=== PATIENT | female | born 1985 | race Caucasian/White ===

== ENCOUNTER 2019-04-06 09:16 | Emergency (ER) | payer OTHER ==
[2019-04-06 09:22] VITALS: BP 133/86; PULSE 111; TEMP 98; BMI 27.3
--- NOTE | 2019-04-06 09:51 | PDOC ---
History of Present Illness - General Chief Complaint: Vaginal Bleeding Stated Complaint: 13 WEEKS /SPOTTING Time Seen by Provider: 04/06/19 09:38 History Source: Patient Exam Limitations: No Limitations - History of Present Illness Initial Comments: 04/06/19 09:45 34YOF who is (about 13 weeks by US confirmed with OB provider) who p/w one hour of dark light vaginal spotting without clots or white material , also mild lower abdominal cramping. She denies any recent f/c/n/v/d/c, dysuria , vaginal discharge, headache, dizziness, lightheadedness, SOB, chest pain, back pain, or other symptoms. Never had this before, no h/o miscarriage or , LMP was mid-December. Past History - Past Medical History Allergies/Adverse Reactions: Allergies Allergy/AdvReac Type Severity Reaction Status Date / Time No Known Allergies Allergy Verified 04/06/19 09:22 Home Medications: Ambulatory Orders Cephalexin [Keflex] 500 mg PO BID #8 capsule 04/06/19 COPD: No - Psycho Social/Smoking Cessation Hx Smoking History: Never smoked Review of Systems - Review of Systems Able to Perform ROS?: Yes Comments:: GEN: no fever, chills, malaise, generalized weakness, or weight change HEENT: no ear pain, sore throat, vision change, or eye pain CV: no chest pain, palpitations, lightheadedness, syncope, or edema RESP: no cough, wheezing, or SOB GI: lower abdominal pain, no nausea, vomiting, diarrhea, constipation, or white/ black/bloody stool : vaginal bleeding, no dysuria, hematuria, incontinence, retention, or discharge MSK: no neck/back pain, muscle weakness/pain, or joint swelling/pain NEURO: no headache, seizure, vertigo, numbness, tingling, or focal weakness PSYCH: no substance use, no behavior change SKIN: no jaundice, no rash ROS otherwise negative except as noted in HPI *Physical Exam - Vital Signs Last Vital Signs Temp Pulse Resp BP Pulse Ox 98 F 111 H 18 133/86 99 04/06/19 09:19 04/06/19 09:19 04/06/19 09:19 04/06/19 09:19 04/06/19 09:19 - Physical Exam Comments: GENERAL: nontoxic and well-appearing, A/Ox4, no distress, answers questions appropriately, pleasant and Eritrean-speaking and accompanied by family HEENT: PERRLA, EOMI, moist mucous membranes NECK/BACK: no midline ttp, no spinal stepoff or deformity, no hematoma, full ROM , neck supple CARDIOVASCULAR: regular rate/rhythm, normal S1S2, no MGR, strong peripheral pulses, capillary refill <2 seconds, extremities wwp, no edema LUNGS/RESPIRATORY: no respiratory distress, CTAB GI/ABDOMEN: symmetric [id number], normoactive BS, soft, minimal suprapubic ttp , no midline pulsatile masses : no CVA tenderness, pelvic normal externally but small amount of dark red blood, speculum with small-moderate amount dark red blood without clots, small amount of physiologic discharge which is nonmalodorous, speculum with os closed and no tenderness EXTREMITIES: no muscle atrophy, no acute deformity SKIN: warm and dry, no pallor, no jaundice, no rash, no bruising, no skin breakdown, no cuts, no lesions NEUROLOGICAL: GCS 15, CN II-XII grossly intact, 5/5 strength proximally and distally, no facial droop ED Treatment Course - LABORATORY CBC & Chemistry Diagram: 04/06/19 09:40 04/06/19 09:40 - RADIOLOGY Radiology Studies Ordered: Category Date Time Status TRANSVAGINAL US PREG [US] Stat Ultrasound 04/06/19 09:38 Ordered Medical Decision Making - Medical Decision Making 34YOF p/w vaginal spotting and lower abdominal cramping at 13 weeks gestation. Initial Vital Signs Temp Pulse Resp BP Pulse Ox 98 F 111 H 18 133/86 99 04/06/19 09:19 04/06/19 09:19 04/06/19 09:19 04/06/19 09:19 04/06/19 09:19 Exam noted in Physical Examination Section. Laboratory Tests 04/06/19 04/06/19 04/06/19 09:40 09:40 09:40 WBC 7.6 RBC 4.87 Hgb 14.6 Hct 42.2 MCV 86.5 MCH 29.9 MCHC 34.6 RDW 14.3 Plt Count 320 MPV 8.3 Absolute Neuts (auto) 5.3 Neutrophils % 70.3 Lymphocytes % 21.8 Monocytes % 5.9 Eosinophils % 1.2 Basophils % 0.8 Nucleated RBC % 0 Sodium 136 Potassium 4.0 Chloride 105 Carbon Dioxide 23 Anion Gap 9 BUN 8.6 Creatinine 0.5 L Est GFR (CKD-EPI)AfAm 148.42 Est GFR (CKD-EPI)NonAf 128.06 Random Glucose 83 Calcium 9.1 Beta HCG, Quant 956937.1 Urine Color Urine Appearance Urine pH Ur Specific [place] Urine Protein Urine Glucose (UA) Urine Ketones Urine Blood Urine Nitrite Urine Bilirubin Urine Urobilinogen Ur Leukocyte Esterase Urine WBC (Auto) Urine RBC (Auto) Urine Casts (Auto) U Pathogenic Cast Auto U Epithel Cells (Auto) Urine Bacteria (Auto) Blood Type O POSITIVE Antibody Screen Negative 04/06/19 10:00 WBC RBC Hgb Hct MCV MCH MCHC RDW Plt Count MPV Absolute Neuts (auto) Neutrophils % Lymphocytes % Monocytes % Eosinophils % Basophils % Nucleated RBC % Sodium Potassium Chloride Carbon Dioxide Anion Gap BUN Creatinine Est GFR (CKD-EPI)AfAm Est GFR (CKD-EPI)NonAf Random Glucose Calcium Beta HCG, Quant Urine Color Red Urine Appearance Turbid Urine pH 6.0 Ur Specific [place] 1.024 Urine Protein 2+ H Urine Glucose (UA) Negative Urine Ketones Negative Urine Blood 3+ H Urine Nitrite Positive H Urine Bilirubin 2+ H Urine Urobilinogen 0.2 Ur Leukocyte Esterase 2+ H Urine WBC (Auto) 26 Urine RBC (Auto) 7722.0 Urine Casts (Auto) 220 U Pathogenic Cast Auto None seen U Epithel Cells (Auto) 29.7 Urine Bacteria (Auto) 3.2 Blood Type Antibody Screen Patient treated with Keflex for UTI (dose given here and Rx sent to pharmacy). US/ <14WKS US History Bleeding in early TECHNIQUE: Transabdominal Findings The uterus measures 11.4 x 9.5 x 11.0 cm.. Including a 2.5 cm posterior intramural myoma A single intrauterine gestation is identified , by ultrasound measurements 13 weeks 1 day. heart rate 142 BPM. No evidence of subchorionic hemorrhage The right ovary measures 3.0 x 1 0.7, 1.4 cm. The left ovary is not identified There are no adnexal masses. There is no free fluid in the pelvis. IMPRESSION Single intrauterine gestation of 13 weeks 1 day. heart rate 142 BPM. Recommend ultrasound anatomic level 2 survey at 21 weeks of gestation 04/06/19 11:32 The patient is Rh-positive and does not need Rhogam. She is instructed to take the Keflex at home and f/u with PCP and FLORIST SUPPLIES SALESPERSON this week. Return precautions are discussed and she will f/u as necessary. Discharge - Discharge Information Problems reviewed: Yes Clinical Impression/Diagnosis: Threatened UTI (urinary tract infection) Qualifiers: Urinary tract infection type: acute cystitis Hematuria presence: with hematuria Qualified Code(s): N30.01 - Acute cystitis with hematuria Condition: Stable Disposition: HOME - Admission No - Additional Discharge Information Prescriptions: Cephalexin [Keflex] 500 mg PO BID #8 capsule - Follow up/Referral - Patient Discharge Instructions Patient Printed Discharge Instructions: DI for Threatened , DI for Urinary Tract Infection (UTI) Additional Instructions: You were seen in the ER for vaginal bleeding in . You have a urinary tract infection, and we gave you a pill of antibiotic and sent the rest of the prescription to your pharmacy. Please pick up truck driver and take the whole course of antibiotics as instructed. Follow up with your FLORIST SUPPLIES SALESPERSON and primary doctors this week. We do not believe you are having a miscarriage at this time, but please make sure to come back to the ER for any new or worsening symptoms. - Post Discharge Activity
[2019-04-06 09:56] LABS: BASO % 0.8 % (0-2.0); EOS % 1.2 % (0-4.5); HEMATOCRIT 42.2 % (32.4-45.2); HEMOGLOBIN 14.6 GM/dL (10.7-15.3); LYMPH % 21.8 % (8-40); MCH 29.9 pg (25.7-33.7); MCHC 34.6 g/dl (32.0-36.0); MEAN CELL VOLUME 86.5 fl (80-96); MEAN PLT VOLUME 8.3 fl (7.5-11.1); MONO % 5.9 % (3.8-10.2); NEUT % 70.3 % (42.8-82.8); PLATELET COUNT 320 K/MM3 (134-434); RBC 4.87 M/mm3 (3.60-5.2); RDW 14.3 % (11.6-15.6); WHITE BLOOD COUNT 7.6 K/mm3 (4.0-10.0)
[2019-04-06 10:22] LABS: EPI CELLS 29.7 /HPF (0-5/HPF); HYALINE CASTS 220 /lpf (0-8); URINE APPEARANCE TURBID; URINE BILIRUBIN 2+ (NEGATIVE); URINE COLOR RED; URINE GLUCOSE (UA) NEGATIVE (NEGATIVE); URINE KETONE NEGATIVE (NEGATIVE); URINE LEUK ESTERASE 2+ (NEGATIVE); URINE NITRITE POSITIVE (NEGATIVE); URINE PROTEIN 2+ (NEGATIVE); URINE UROBILINOGEN 0.2 mg/dL (0.2-1.0); URINE WBC 26 /hpf (0-5)
[2019-04-06 10:39] LABS: BLOOD UREA NITROGEN 8.6 mg/dL (7-18); CALCIUM 9.1 mg/dL (8.5-10.1); CREATININE 0.5 mg/dL (0.55-1.3)
[2019-04-06 10:44] LABS: URINE BACTERIA 3.2 /hpf (NEGATIVE)
[2019-04-06] MEDS ORDERED: CEPHALEXIN MONOHYDRATE 500 MG CAPSULE (UD) PO ONE (11:32)
--- NOTE | 2019-04-06 11:36 | PDOC ---
Attending Attestation - Resident Resident Name: Rachel Sewell - HPI HPI: 04/06/19 11:36 Pt presents to the ED complaining of vaginal bleeding. 13 weeks by dates. - Physicial Exam PE: 04/06/19 11:38 Agree with resident exam. PAtient is alert and in no acute distress. Abdomen soft, non tender, non distended without guarding or rebound. + moderate blood in the vaginal vault on resident exam. - Medical Decision Making 04/06/19 11:40 Pt presents to the ED complaining of vaginal bleeding. 13 weeks by dates. Official US confirms IUP with normal FHR. + UTI on UA. Will treat with macrobid and discharge home with instructions to follow up with primary OB.
[2019-04-06] MEDS ORDERED: CEPHALEXIN MONOHYDRATE 500 MG CAPSULE (UD) ONE (12:08)
== END 2019-04-06 12:15 | disposition home or self-care (01) ==
LOC: JER 09:16
DX: O26.891 Other specified pregnancy related conditions, first trimester (principal); O20.0 Threatened abortion; O23.41 Unspecified infection of urinary tract in pregnancy, first trimester; N30.01 Acute cystitis with hematuria; Z3A.13 13 weeks gestation of pregnancy
CPT/HCPCS: 36415; 76801-TC; 80048; 81003; 84702; 85025; 86850; 86900; 86901; 87086; 99282-25

== ENCOUNTER 2019-04-15 21:28 | Emergency (ER) | payer OTHER ==
[2019-04-15 22:03] VITALS: BMI 28.3
[2019-04-15 23:42] LABS: EPI CELLS 1.8 /HPF (0-5/HPF); HYALINE CASTS 0 /lpf (0-8); PH,URINE 6.5 (5.0-8.0); URINE APPEARANCE CLEAR; URINE BACTERIA 20.5 /hpf (NEGATIVE); URINE BILIRUBIN NEGATIVE (NEGATIVE); URINE COLOR YELLOW; URINE GLUCOSE (UA) NEGATIVE (NEGATIVE); URINE KETONE NEGATIVE (NEGATIVE); URINE LEUK ESTERASE NEGATIVE (NEGATIVE); URINE NITRITE NEGATIVE (NEGATIVE); URINE PROTEIN NEGATIVE (NEGATIVE); URINE RBC 1 /hpf (0-4); URINE UROBILINOGEN 0.2 mg/dL (0.2-1.0); URINE WBC 1 /hpf (0-5)
[2019-04-16 00:09] VITALS: BP 101/64; PULSE 104; TEMP 98.2
--- NOTE | 2019-04-16 00:17 | PDOC ---
Documentation entered by Minal Brennan SCRIBE, acting as scribe for Linette Shelley MD. Linette Shelley MD: This documentation has been prepared by the Mika hardin Adrianna, SCRIBE, under my direction and personally reviewed by me in its entirety. I confirm that the documentation accurately reflects all work, treatment, procedures, and medical decision making performed by me. History of Present Illness - General Chief Complaint: Pain Stated Complaint: ABD PAIN/15WKS PREG. Time Seen by Provider: 04/15/19 22:48 - History of Present Illness Initial Comments: The patient is a 34 year old female, (about 15 weeks by US confirmed with OB provider), presenting to the ED for evaluation of abdominal cramping for 4 days. Patient comes of diffuse lower abdominal cramping since Sunday. She endorses associated thick, white discharge. Patient notes she saw her OB for this complaint, and was placed on one dose of Diflucan. She reports no change in her symptoms after taking the medication. She denies any vaginal bleeding at this time. Patient was seen in the ED 9 days ago for a similar complaint, and was found to have a UTI (given antibiotics). Allergies: NKA, NKDA Surgical History: None reported Social History: Denies EtOH, tobacco, or illicit drug use OBGYN: Dr. Munguia Past History - Past Medical History Allergies/Adverse Reactions: Allergies Allergy/AdvReac Type Severity Reaction Status Date / Time No Known Allergies Allergy Verified 04/16/19 00:14 COPD: No - Psycho Social/Smoking Cessation Hx Smoking History: Never smoked Have you smoked in the past 12 months: No Information on smoking cessation initiated: No Hx Alcohol Use: No Drug/Substance Use Hx: No Review of Systems - Review of Systems Comments:: GENERAL/CONSTITUTIONAL: +15 weeks . No fever or chills. No weakness. HEAD, EYES, EARS, NOSE AND THROAT: No change in vision. No ear pain or discharge. No sore throat. CARDIOVASCULAR: No chest pain or shortness of breath. RESPIRATORY: No cough, wheezing, or hemoptysis. GASTROINTESTINAL: No nausea, vomiting, diarrhea or constipation. GENITOURINARY: +Diffuse lower abdominal cramping. +White, thick discharge. No dysuria, frequency, or change in urination. MUSCULOSKELETAL: No joint or muscle swelling or pain. No neck or back pain. SKIN: No rash NEUROLOGIC: No headache, vertigo, loss of consciousness, or change in strength/ sensation. ENDOCRINE: No increased thirst. No abnormal weight change. HEMATOLOGIC/LYMPHATIC: No anemia, easy bleeding, or history of blood clots. ALLERGIC/IMMUNOLOGIC: No hives or skin allergy. *Physical Exam - Vital Signs Last Vital Signs Temp Pulse Resp BP Pulse Ox 97.7 F 98 H 17 125/85 100 04/15/19 22:01 04/15/19 22:01 04/15/19 22:01 04/15/19 22:01 04/15/19 22:01 - Physical Exam Comments: GENERAL: Awake, alert, and fully oriented, in no acute distress HEAD: No signs of trauma EYES: PERRLA, EOMI, sclera anicteric, conjunctiva clear ENT: Auricles normal inspection, hearing grossly normal, nares patent, oropharynx clear without exudates. Moist mucosa NECK: Normal ROM, supple, no lymphadenopathy, JVD, or masses LUNGS: Breath sounds equal, clear to auscultation bilaterally. No wheezes, and no crackles HEART: Regular rate and rhythm, normal S1 and S2, no murmurs, rubs or gallops ABDOMEN: +Band-like lower abdominal ttp. Soft, normoactive bowel sounds. No guarding, no rebound. No masses EXTREMITIES: Normal range of motion, no edema. No clubbing or cyanosis. No cords, erythema, or tenderness NEUROLOGICAL: Cranial nerves II through XII grossly intact. Normal speech, normal gait SKIN: Warm, Dry, normal turgor, no rashes or lesions noted. ED Treatment Course - ADDITIONAL ORDERS Additional order review: Laboratory Results 04/15/19 23:28 Urine Color Yellow Urine Appearance Clear Urine pH 6.5 Ur Specific [place] 1.005 L Urine Protein Negative Urine Glucose (UA) Negative Urine Ketones Negative Urine Blood Trace Urine Nitrite Negative Urine Bilirubin Negative Urine Urobilinogen 0.2 Ur Leukocyte Esterase Negative Urine WBC (Auto) 1 Urine RBC (Auto) 1 Urine Casts (Auto) 0 U Epithel Cells (Auto) 1.8 Urine Bacteria (Auto) 20.5 - RADIOLOGY Radiology Studies Ordered: Category Date Time Status LIMITED US [US] Stat Ultrasound 04/15/19 23:13 Taken Medical Decision Making - Medical Decision Making 04/16/19 00:12 this 34 yo female PMH p/w band like discomfort in across her pelvis ,she denies any bleeding she was seen 2 weeks ago and treated for a UTI and had a pelvic US that showed a SL IUP of 13 weeks 04/16/19 00:15 pt has no nausea ,no vomiting, no vaginal bleeding or cramping tonight UA is negative 04/16/19 02:19 single live intrauterine fetus estimated age is 15 weeks 0 days heart rate of 170. Amniotic fluid within normal limits. Cervical length 3 cm discharge home Discharge - Discharge Information Problems reviewed: Yes Clinical Impression/Diagnosis: Qualifiers: Weeks of gestation: 15 weeks Qualified Code(s): Z3A.15 - 15 weeks gestation of Condition: Stable Disposition: HOME - Follow up/Referral Referrals: Camila Munguia MD [Primary Care Provider] - - Patient Discharge Instructions Patient Printed Discharge Instructions: DI for Pelvic Pain, DI for - - Discomforts and Remedies Additional Instructions: please followup with your open hearth laborer - Post Discharge Activity
== END 2019-04-16 02:29 | disposition home or self-care (01) ==
LOC: JER 21:28
DX: O26.892 Other specified pregnancy related conditions, second trimester (principal); R10.30 Lower abdominal pain, unspecified; N89.8 Other specified noninflammatory disorders of vagina; Z3A.15 15 weeks gestation of pregnancy
CPT/HCPCS: 76815-TC; 81003; 99282-25

== ENCOUNTER 2019-07-02 07:23 | Emergency (ER) | payer OTHER ==
[2019-07-02 07:48] VITALS: BMI 27.1
--- NOTE | 2019-07-02 07:56 | PDOC ---
History of Present Illness - General Chief Complaint: Urinary Problem Stated Complaint: BURNING W/URINATION Time Seen by Provider: 07/02/19 07:42 History Source: Patient, Spouse Exam Limitations: No Limitations Past History - Past Medical History Allergies/Adverse Reactions: Allergies Allergy/AdvReac Type Severity Reaction Status Date / Time No Known Allergies Allergy Verified 07/02/19 07:36 Home Medications: Ambulatory Orders Cephalexin [Keflex] 500 mg PO BID #13 capsule 07/02/19 COPD: No - Psycho Social/Smoking Cessation Hx Smoking History: Never smoked Have you smoked in the past 12 months: No Information on smoking cessation initiated: No Hx Alcohol Use: No Drug/Substance Use Hx: No *Physical Exam - Vital Signs Last Vital Signs Temp Pulse Resp BP Pulse Ox 97.6 F 95 H 17 124/66 100 07/02/19 07:34 07/02/19 07:34 07/02/19 07:34 07/02/19 07:34 07/02/19 07:34 - Physical Exam General Appearance: No: Apparent Distress Respiratory/Chest: positive: Lungs Clear, Normal Breath Sounds. negative: Respiratory Distress Cardiovascular: positive: Regular Rhythm, Regular Rate, S1, S2. negative: Murmur Gastrointestinal/Abdominal: positive: Soft, Other (gravid abdomen) Musculoskeletal: negative: CVA Tenderness Neurologic: positive: Alert Medical Decision Making - Medical Decision Making 34 y/o F currently 26 weeks presents with dysuria from yesterday. Denies fever, sob, cp, abd pain, vomiting, hematuria, vaginal bleeding. Follows with OB, Dr. Camila Munguia, regarding her R/O UTI Plan: UA, UCx Will send to OB afterward for FHR 07/02/19 07:54 UA shows +UTI Given Keflex Will send to OB for FHR 07/02/19 08:40 Discharge - Discharge Information Problems reviewed: Yes Clinical Impression/Diagnosis: UTI (urinary tract infection) Qualifiers: Urinary tract infection type: acute cystitis Hematuria presence: without hematuria Qualified Code(s): N30.00 - Acute cystitis without hematuria Condition: Stable Disposition: HOME - Admission No - Additional Discharge Information Prescriptions: Cephalexin [Keflex] 500 mg PO BID #13 capsule Prescription Drug Monitoring Program (I-STOP) results: I-STOP not reviewed - Follow up/Referral Referrals: Karsten Hardwick MD, MD [Primary Care Provider] - - Patient Discharge Instructions Patient Printed Discharge Instructions: DI for Urinary Tract Infection (UTI) Additional Instructions: Thank you for choosing [facility]. It was a pleasure taking care of you. Take antibiotics as prescribed for urine infection Drink at least 2L of water daily Continue follow-up with your AUTO INSPECTION SPECIALIST and regular doctor Return to the Emergency Department if your symptoms worsen or persist or have other concerning symptoms. - Post Discharge Activity
[2019-07-02 08:24] LABS: EPI CELLS 9.9 /HPF (0-5/HPF); HYALINE CASTS 16 /lpf (0-8); URINE APPEARANCE CLOUDY; URINE BACTERIA 247.6 /hpf (NEGATIVE); URINE BILIRUBIN NEGATIVE (NEGATIVE); URINE COLOR DK YELLOW; URINE GLUCOSE (UA) NEGATIVE (NEGATIVE); URINE KETONE NEGATIVE (NEGATIVE); URINE LEUK ESTERASE 2+ (NEGATIVE); URINE NITRITE NEGATIVE (NEGATIVE); URINE PROTEIN TRACE (NEGATIVE); URINE RBC 4 /hpf (0-4); URINE UROBILINOGEN 0.2 mg/dL (0.2-1.0); URINE WBC 63 /hpf (0-5)
[2019-07-02] MEDS ORDERED: CEPHALEXIN MONOHYDRATE 500 MG CAPSULE (UD) PO ONE (08:38)
[2019-07-02] MEDS ORDERED: CEPHALEXIN MONOHYDRATE 500 MG CAPSULE (UD) ONE (08:42)
[2019-07-02 09:31] VITALS: BP 123/79; PULSE 80; TEMP 98.2
--- NOTE | 2019-07-02 10:02 | CONSULT ---
Past Medical History, Laborist - Primary Care Physician PCP:: Chava De La Cruz - Admission Chief Complaint: urinary frequency, burnning History of Present Illness: 34 yo f g 2 p0101 25.4 weeks, c/o urinary frequency and burning , no hematuria, no fever or flank pain, no contraction ,no vaginal fluid Limitations to Obtaining History: Language Barrier - Past Medical History Renal/: UTI ...: 2 ...Para: 1 ...: 1 ...LMP: 01/04/19 ... Weeks Gestation by Dates: 25 ...EDC by Dates: 10/08/19 - Smoking History Smoking history: Never smoked Have you smoked in the past 12 months: No - Alcohol/Substance Use Hx Alcohol Use: No - Social History History of Recent Travel: No Review of Systems - Review of Systems Constitutional: reports: No Symptoms Eyes: reports: No Symptoms HENT: reports: No Symptoms Neck: reports: No Symptoms Cardiovascular: reports: No Symptoms Respiratory: reports: No Symptoms Gastrointestinal: reports: No Symptoms Genitourinary: reports: Burning, Frequency Neurological: reports: No Symptoms Endocrine: reports: No Symptoms Hematology/Lymphatic: reports: No Symptoms Physical Exam - Maternity Vital Signs: Vital Signs Temperature 98.2 F 07/02/19 09:17 Pulse Rate 80 07/02/19 09:17 Respiratory Rate 20 07/02/19 09:17 Blood Pressure 123/79 07/02/19 09:17 O2 Sat by Pulse Oximetry (%) 100 07/02/19 07:34 Constitutional: Yes: Well Nourished, No Distress, Calm Eyes: Yes: WNL, Conjunctiva Clear, EOM Intact HENT: Yes: WNL, Atraumatic, Normocephalic Neck: Yes: WNL, Supple, Trachea Midline Cardiovascular: Yes: WNL, Regular Rate and Rhythm Breast(s): Yes: WNL - Abdominal Exam/OB Fundal Height: 26 Number of Fetuses: Single Presentation: Breech Contractions: No Intensity: Unaware Category: I Decelerations: None - Vaginal Exam/OB Vaginal Bleediing: No (positve for thick white curdy discharge) Speculum Exam: Yes Dilatation (cm): 0 Effacement (%): 0 Amniotic Membrane Status: Intact Station: -4 - Physical Exam Musculoskeletal: Yes: WNL Extremities: Yes: WNL Edema: No Hemorrhage Risk Assessment - Risk Factors Medium Risk Factors: Yes: None High Risk Factors: Yes: None Risk Score: 1 Risk Level: Medium Risk Problem List - Problems (1) with 24 completed weeks gestation Code(s): Z3A.24 - 24 WEEKS GESTATION OF (2) UTI (urinary tract infection) Code(s): N39.0 - URINARY TRACT INFECTION, SITE NOT SPECIFIED Qualifiers: Urinary tract infection type: acute cystitis (3) Yeast vaginitis Code(s): B37.3 - CANDIDIASIS OF VULVA AND VAGINA Assessment/Plan was txed for UTI in ER , yeast vaginitis, rx monstat vaginal cream. follow up in clinic on sunday advised if pain, fever, contraction return to L&D
== END 2019-07-02 10:06 | disposition home or self-care (01) ==
LOC: JER 07:23
DX: O26.892 Other specified pregnancy related conditions, second trimester (principal); O23.12 Infections of bladder in pregnancy, second trimester; O98.812 Other maternal infectious and parasitic diseases complicating pregnancy, second trimester; B37.3 Candidiasis of vulva and vagina; Z3A.25 25 weeks gestation of pregnancy
CPT/HCPCS: 81003; 87086; 99282-25